=== PATIENT | female | born 1960 | race Caucasian/White ===

== ENCOUNTER 2017-09-19 15:45 | Emergency (ER) | payer BC ==
[2017-09-19] MEDS ORDERED: LORazepam 1 MG Tab PO ONE (16:26)
[2017-09-19] MEDS ORDERED: Ondansetron 4 MG Tab.DIS PO ONE (16:26)
--- NOTE | 2017-09-19 16:35 | EDM.PDOC ---
ED HPI GENERAL MEDICAL PROBLEM - General Chief Complaint: Neurological Problem Stated Complaint: DIZZY/VOMITING Time Seen by Provider: 09/19/17 16:02 Source of Information: Reports: Patient, Family () History Limitations: Reports: No Limitations - History of Present Illness INITIAL COMMENTS - FREE TEXT/NARRATIVE: The patient states that she woke around midnight with a sensation that the room was spinning, causing her to vomit. The spinning sensation decreases if she remains perfectly still, but increases if she moves her head. The patient reports similar symptoms about 2 years ago. She states that she was seen at [facility], and was diagnosed with "vestibular neuritis". The patient denies any recent hearing loss, and states that she recently had an audiology test, which showed no hearing problems. No recent fever. She states that she had tenderness to the right ear earlier today, but it is gone now. The patient's PCP is Valerie Seymour. - Related Data Allergies Allergy/AdvReac Type Severity Reaction Status Date / Time codeine Allergy Shortness Verified 09/19/17 15:51 of Breath Home Meds: Home Meds Meclizine [Antivert] 1 tab PO Q6H PRN #20 tab 09/19/17 [Rx] Past Medical History HEENT History: Reports: Impaired Vision Cardiovascular History: Reports: High Cholesterol Gastrointestinal History: Reports: GERD ELECTROLOGIST History: Reports: Neurological History: Reports: Migraines Psychiatric History: Reports: Anxiety - Past Surgical History HEENT Surgical History: Reports: Oral Surgery ([place] teeth extraction) GI Surgical History: Reports: Cholecystectomy, Colonoscopy (x 2), EGD Female Surgical History: Reports: D&C (x 1) Musculoskeletal Surgical History: Reports: Carpal Tunnel (bilateral), Other ( See Below) (Right thumb trigger finger release) Social & Family History - Tobacco Use Smoking Status *Q: Never Smoker Second Hand Smoke Exposure: No - Caffeine Use Caffeine Use: Reports: Soda - Alcohol Use Alcohol Use History: No - Recreational Drug Use Recreational Drug Use: No - Living Situation & Occupation Living situation: Reports: , with Spouse Occupation: Retired ED ROS GENERAL - Review of Systems Review Of Systems: ROS reveals no pertinent complaints other than HPI. ED EXAM, DIZZINESS - Physical Exam Exam: See Below Exam Limited By: No Limitations General Appearance: Alert, WD/WN, Mild Distress (Lying still on the gurney with her eyes closed. Looks nauseated.) Eye Exam: Bilateral Eye: EOMI, Normal Inspection, PERRL Ears: Normal External Exam, Normal Canal, Hearing Grossly Normal, Normal TMs Nose: Normal Inspection, Normal Mucosa, No Blood Throat/Mouth: Normal Inspection, Normal Lips, Normal Voice, No Airway Compromise Head Exam: Atraumatic, Normocephalic Vertigo: worsens with head to L, worsens with head to R, reproducible ([place]- Hall[place] maneuver to the left causes fast component up, to the left, with clockwise rotation of the eye, with induction of vertiginous symptoms. Returning the patient to an upright position causes no nystagmus. [place] [facility]-Hallpike maneuver to the right causes nystagmus up into the left, with clockwise rotation of the eye, and induction of vertiginous symptoms. Returning to an upright position and does not induce nystagmus.), short duration Neck: Normal Inspection, Full Range of Motion Neurological: Alert, CN II-XII Intact, No Motor/Sensory Deficits, Oriented x 3 Back Exam: Normal Inspection, Full Range of Motion Psychiatric: Normal Affect Skin Exam: Warm, Dry, Intact, Normal Color, No Rash Course - Vital Signs Last Recorded V/S: Last Vital Signs Temp 36.9 C 09/19/17 15:52 Pulse 67 09/19/17 15:52 Resp 13 09/19/17 15:52 BP 158/75 H 09/19/17 15:52 Pulse Ox 99 09/19/17 15:52 - Orders/Labs/Meds Meds: Medications Discontinued Medications Generic Name Dose Route Start Last Admin Trade Name Susie PRN Reason Stop Dose Admin Lorazepam 1 mg 09/19/17 16:26 Ativan PO 09/19/17 16:27 ONETIME ONE Meclizine HCl 25 mg 09/19/17 16:25 Antivert PO 09/19/17 16:26 ONETIME STA Ondansetron HCl 4 mg 09/19/17 16:26 Zofran Odt PO 09/19/17 16:27 ONETIME ONE - Re-Assessments/Exams Free Text/Narrative Re-Assessment/Exam: 09/19/17 16:29 Clinically, the patient has BPPV caused by a left ear canalith obstruction. For today's purposes, I will treat her with meclizine, Zofran, and Ativan. The ED. All the pharmacies are closed at this time, therefore if the patient needs an additional dose of meclizine overnight, she can take [id number] Benadryl. I will prescribe Zofran via [facility]. The patient states that she has an ENT in [place], whose name she cannot recall. I will refer her to Dr. Gage Thomas, but if the patient can recall her ENTs name, she can follow-up with him instead. Departure - Departure Time of Disposition: 16:30 Disposition: Home, Self-Care 01 Condition: Fair Clinical Impression: Benign paroxysmal positional vertigo of left ear - Discharge Information Referrals: Valerie Seymour MD [Primary Care Provider] - Gage Thomas MD [Ordering Only Provider] - Additional Instructions: You were seen in the emergency room for symptoms of the room spinning when you move your head, and vomiting. Based on your history and physical examination, you are MOST LIKELY suffering from benign paroxysmal positional vertigo (BPPV) caused by the blockage of one of the 3 semicircular canals in your left inner ear. You have been started on the anti-dizziness medicine Antivert (meclizine). A prescription for meclizine has been sent to [address], in [place]. Take one tablet up to every 6 hours, as needed for dizziness. Overnight, if you continue to have bad dizziness, you may take [id number] Benadryl - it is very similar to meclizine. An [facility] prescription for the anti-nausea medicine Zofran has been provided to you. Dissolve 1 tablet on your tongue up to every 8 hours, as needed for nausea/vomiting. Follow-up with your own ENT, or Dr. Gage Thomas, at the next available appointment. Do not drive or operate heavy machinery until this issue has been resolved. If any other problems, please do not hesitate to return to the ER.
== END 2017-09-19 17:53 | disposition home or self-care (01) ==
LOC: JD.ED 15:45
DX: H81.12 Benign paroxysmal vertigo, left ear (principal); E78.00 Pure hypercholesterolemia, unspecified; F41.9 Anxiety disorder, unspecified; K21.9 Gastro-esophageal reflux disease without esophagitis
CPT/HCPCS: 99284; A9270; 99283